=== PATIENT | male | born 1980 | race Caucasian/White ===

== ENCOUNTER 2016-09-21 21:03 | Emergency (ER) | payer SELFPAY ==
[~2016-09-21] VITALS: Ht 175.3 cm; Wt 107.0 kg
[2016-09-21] MEDS: TETANUS, DIPHTHERIA, PERTUSSIS VAC/PF 0.5ML (>7YR OLD) IM ONE (23:11)
[2016-09-21 23:12] VITALS: BP 160/101
[2016-09-21] MEDS: BACITRACIN ZINC OINT UDPKT TOP ONE (23:12)
[2016-09-21] MEDS: LIDOCAINE HCL 1% 20ML VIAL (Pyxis) INJ MC ONE (23:12)
[2016-09-21] MEDS: KETOROLAC 60MG/2ML VIAL IM ONE (23:12)
== END 2016-09-22 00:19 | disposition home or self-care (01) ==
LOC: ER 21:05
DX: S81.012A Laceration without foreign body, left knee, initial encounter (principal); W45.8XXA Other foreign body or object entering through skin, initial encounter; Y93.H2 Activity, gardening and landscaping; Y92.89 Other specified places as the place of occurrence of the external cause; Y99.8 Other external cause status
CPT/HCPCS: 12002; 90471; 90715; 96372; 99284; J1885; J3490

== ENCOUNTER 2016-09-28 18:22 | Emergency (ER) | payer SELFPAY ==
[~2016-09-28] VITALS: Ht 175.3 cm; Wt 107.0 kg
[2016-09-28 18:34] VITALS: BP 141/98
== END 2016-09-28 21:45 | disposition home or self-care (01) ==
LOC: ER 18:23
DX: S81.012D Laceration without foreign body, left knee, subsequent encounter (principal)
CPT/HCPCS: 99281

== ENCOUNTER 2016-10-03 16:09 | Emergency (ER) | payer SELFPAY ==
[~2016-10-03] VITALS: Ht 175.3 cm; Wt 106.0 kg
[2016-10-03 16:14] VITALS: BP 127/82
== END 2016-10-03 20:53 | disposition home or self-care (01) ==
LOC: ER 16:10
DX: S81.011D Laceration without foreign body, right knee, subsequent encounter (principal); X58.XXXD Exposure to other specified factors, subsequent encounter; Y93.89 Activity, other specified; Y92.9 Unspecified place or not applicable; Y99.8 Other external cause status
CPT/HCPCS: 99282; Z7610